=== PATIENT | female | born 1975 | race American Indian/Alaskan Native ===

== ENCOUNTER 2017-01-04 21:18 | Emergency (ER) | payer OTHER ==
[2017-01-04 22:26] VITALS: BP 113/79
--- NOTE | 2017-01-04 23:03 | Emergency Department Report ---
ED ENT HPI - General Chief complaint: Dental/Oral Stated complaint: TOOTHACHE Source: patient Mode of arrival: Ambulatory Limitations: No Limitations - History of Present Illness MD complaint: tooth pain -: Gradual Severity: moderate Severity scale (0 -10): 5 Quality: aching Improves with: none Worsens with: eating Context- Dental: history of dental caries - Related Data Previous Rx's Medication Instructions Recorded Last Taken Type Amoxicillin [Amoxicillin TAB] 875 mg PO BID #20 tablet 01/04/17 Unknown Rx traMADol [Ultram 50 MG tab] 50 mg PO Q4HR PRN #20 tablet 01/04/17 Unknown Rx Allergies Allergy/AdvReac Type Severity Reaction Status Date / Time No Known Allergies Allergy Unverified 01/04/17 22:23 ED Dental HPI - General Chief complaint: Dental/Oral Stated complaint: TOOTHACHE Source: patient Mode of arrival: Ambulatory Limitations: No Limitations - History of Present Illness Initial comments: Patient has chronic recurrent dental pain, has a appointment with her dentist for a root canal but that is not for several weeks. Patient denies neck pain, fever, headache, photophobia, or eye pain. MD complaint: tooth pain -: Gradual Severity: moderate Quality: aching Worsens with: eating, chewing - Related Data Previous Rx's Medication Instructions Recorded Last Taken Type Amoxicillin [Amoxicillin TAB] 875 mg PO BID #20 tablet 01/04/17 Unknown Rx traMADol [Ultram 50 MG tab] 50 mg PO Q4HR PRN #20 tablet 01/04/17 Unknown Rx Allergies Allergy/AdvReac Type Severity Reaction Status Date / Time No Known Allergies Allergy Unverified 01/04/17 22:23 ED Review of Systems ROS: Stated complaint: TOOTHACHE Other details as noted in HPI Constitutional: denies: chills, fever Eyes: denies: eye pain, eye discharge, vision change ENT: ear pain, dental pain. denies: throat pain, hearing loss Respiratory: denies: cough, shortness of breath, wheezing Cardiovascular: denies: chest pain, palpitations Endocrine: no symptoms reported Gastrointestinal: denies: abdominal pain, nausea, diarrhea Genitourinary: denies: urgency, dysuria, discharge Musculoskeletal: denies: back pain, joint swelling, arthralgia Skin: denies: rash, lesions Neurological: denies: headache, weakness, paresthesias Psychiatric: denies: anxiety, depression Hematological/Lymphatic: denies: easy bleeding, easy bruising ED Past Medical Hx - Past Medical History Previous Medical History?: No - Surgical History Additional Surgical History: hernia - Social History Smoking Status: Never Smoker Substance Use Type: None - Medications Home Medications: Home Medications Medication Instructions Recorded Confirmed Last Taken Type Amoxicillin [Amoxicillin TAB] 875 mg PO BID #20 tablet 01/04/17 Unknown Rx traMADol [Ultram 50 MG tab] 50 mg PO Q4HR PRN #20 tablet 01/04/17 Unknown Rx ED Physical Exam - General Limitations: No Limitations General appearance: alert, in no apparent distress - Head Head exam: Present: atraumatic, normocephalic - Eye Eye exam: Present: normal appearance, PERRL, EOMI - ENT ENT exam: Present: mucous membranes moist - Expanded ENT Exam Expanded Teeth exam: Present: dental caries, fractured tooth #, dental tenderness #. Absent: normal inspection, gingival enlargement - Neck Neck exam: Present: normal inspection. Absent: tenderness, meningismus - Respiratory Respiratory exam: Present: normal lung sounds bilaterally. Absent: respiratory distress, wheezes, rales, rhonchi, stridor, chest wall tenderness, accessory muscle use, decreased breath sounds, prolonged expiratory - Cardiovascular Cardiovascular Exam: Present: regular rate. Absent: normal rhythm - GI/Abdominal GI/Abdominal exam: Present: soft, normal bowel sounds - Extremities Exam Extremities exam: Present: normal inspection - Back Exam Back exam: Present: normal inspection - Neurological Exam Neurological exam: Present: alert, oriented X3, CN II-XII intact - Psychiatric Psychiatric exam: Present: normal affect, normal mood - Skin Skin exam: Present: warm, dry, intact, normal color. Absent: rash ED Course Vital Signs 01/04/17 22:23 Temperature 99.0 F Pulse Rate 94 H Respiratory 16 Rate Blood Pressure 113/79 O2 Sat by Pulse 99 Oximetry Critical care attestation.: If time is entered above; I have spent that time in minutes in the direct care of this critically ill patient, excluding procedure time. ED Disposition Clinical Impression: Fractured tooth Disposition: DC-01 TO HOME OR SELFCARE Is pt being admited?: No Condition: Stable Instructions: Dental Caries (ED), Toothache (ED) Prescriptions: Amoxicillin [Amoxicillin TAB] 875 mg PO BID #20 tablet traMADol [Ultram 50 MG tab] 50 mg PO Q4HR PRN #20 tablet PRN Reason: Pain Forms: Work/School Release Form(ED)
[2017-01-04] MEDS ORDERED: TYLENOL ONE (23:39)
[2017-01-04] MEDS ORDERED: MOTRIN PO ONE ×2 (23:39→23:43)
[2017-01-04] MEDS ORDERED: TYLENOL PO ONE (23:43)
== END 2017-01-05 00:12 | disposition home or self-care (01) ==
LOC: ED 21:18
DX: S02.5XXA Fracture of tooth (traumatic), initial encounter for closed fracture (principal); X58.XXXA Exposure to other specified factors, initial encounter; Y93.89 Activity, other specified; Y99.8 Other external cause status; Y92.89 Other specified places as the place of occurrence of the external cause
CPT/HCPCS: 99282

== ENCOUNTER 2017-01-19 11:54 | Emergency (ER) | payer OTHER | END 2017-01-19 12:27 | disposition left against medical advice (07) | LOC: ED 11:54 | DX: R11.0 Nausea (principal); Z53.21 Procedure and treatment not carried out due to patient leaving prior to being seen by health care provider ==

== ENCOUNTER 2018-09-02 07:15 | Emergency (ER) | payer OTHER ==
[2018-09-02 07:33] VITALS: BP 122/64
--- NOTE | 2018-09-02 07:52 | Emergency Department Report ---
HPI - General Chief Complaint: Extremity Injury, Lower Time Seen by Provider: 09/02/18 07:35 - HPI HPI: This is a 42-year-old female with no past medical history of any medical condition is known to me presents to ED complaining of left ankle pain and small laceration status post. Headboard fallen on her ankle yesterday while she was putting it together. Patient states this incident happened around 7 PM last night patient describes throbbing to the left ankle. Patient states she had minimal bleeding after incident and wrapped up her foot. She denies inability to walk. Patient states pain with applied pressure. ED Past Medical Hx - Past Medical History Previous Medical History?: No - Surgical History Past Surgical History?: Yes Additional Surgical History: hernia - Social History Smoking Status: Never Smoker Substance Use Type: Alcohol - Medications Home Medications: Home Medications Medication Instructions Recorded Confirmed Last Taken Type Amoxicillin [Amoxicillin TAB] 875 mg PO BID #20 tablet 01/04/17 Unknown Rx traMADol [Ultram 50 MG tab] 50 mg PO Q4HR PRN #20 tablet 01/04/17 Unknown Rx Ibuprofen [Motrin] 800 mg PO Q8HR #30 tablet 09/02/18 Unknown Rx cephALEXin [Keflex] 500 mg PO Q12HR #10 cap 09/02/18 Unknown Rx ED Review of Systems ROS: Stated complaint: L ANKLE INJURY Other details as noted in HPI Comment: All other systems reviewed and negative Physical Exam - Physical Exam Vital Signs: Vital Signs 09/02/18 07:23 Temperature 98.4 F Pulse Rate 71 Respiratory 18 Rate Blood Pressure 122/64 [Right] O2 Sat by Pulse 99 Oximetry Physical Exam: GENERAL: Alert and oriented x3, no apparent distress, Normal Gait with a little limp, atraumatic. HEAD: Head is normocephalic and a-traumatic. EXTREMITIES/MUSCULOSKELETAL: No cyanosis, clubbing, rash, lesions or edema. Full ROM bilaterally. Pedal Pulses 2+ bilaterally. Patient reports the apply pressure without much discomfort., No ankle edema or redness . There is a small 0.5 cm non-deep laceration to the posterior ankle. No bleeding NEUROLOGIC: The patient is cooperative with no focal neurologic deficits. SKIN: Warm and dry, No lesions, No ulceration or induration present. ED Course Vital Signs 09/02/18 07:23 Temperature 98.4 F Pulse Rate 71 Respiratory 18 Rate Blood Pressure 122/64 [Right] O2 Sat by Pulse 99 Oximetry ED Medical Decision Making - Radiology Data Radiology results: report reviewed, image reviewed - Medical Decision Making 42-year-old female presents with injury to the ankle. X-ray shows no acute bony fractures or dislocation Lacerations seen. Laceration cleaned and Steri-Strip applied. Sterile wrapped with gauze is line discussed with patient to follow-up with the orthopedic doctor Kwaku symptoms does not resolve Discussed rest for the next couple of days. Laceration was sustained from a metal bed railing. Discussed with the patient tetanus booster. Patient received tetanus booster in ED. Critical care attestation.: If time is entered above; I have spent that time in minutes in the direct care of this critically ill patient, excluding procedure time. ED Disposition Clinical Impression: Left ankle pain, Laceration of ankle without complication Disposition: DC- TO HOME OR SELFCARE Is pt being admited?: No Does the pt Need Aspirin: No Condition: Stable Instructions: Abrasion (ED), Skin Adhesive Care (ED) Additional Instructions: Make sure to follow up with the primary care physician as discussed. Take all your medications as you've been prescribed. If you have any worsening symptoms or develop new symptoms please return to ED immediately. Prescriptions: cephALEXin [Keflex] 500 mg PO Q12HR #10 cap Ibuprofen [Motrin] 800 mg PO Q8HR #30 tablet Referrals: [facility] [Outside] - 3-5 Days WILSON BILLINGS MD [Staff Physician] - 3-5 Days Forms: Work/School Release Form(ED) Time of Disposition: 09:25
[2018-09-02] MEDS ORDERED: MOTRIN PO ONE (08:20)
--- NOTE | 2018-09-02 09:23 | XRay Report ---
LEFT ANKLE, 3 views: History: left ankle pain. Bone mineralization is normal. No acute osseous abnormality or joint pathology is identified. The soft tissues are unremarkable. IMPRESSION: Normal study.
[2018-09-02] MEDS ORDERED: BOOSTRIX IM ONE ×2 (09:24→09:46)
== END 2018-09-02 10:00 | disposition home or self-care (01) ==
LOC: ED 07:15
DX: S91.012A Laceration without foreign body, left ankle, initial encounter (principal); W01.190A Fall on same level from slipping, tripping and stumbling with subsequent striking against furniture, initial encounter; Y93.89 Activity, other specified; Y92.89 Other specified places as the place of occurrence of the external cause; Y99.8 Other external cause status
CPT/HCPCS: 90471; 90715